=== PATIENT | female | born 2000 | race Caucasian/White ===

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

== ENCOUNTER 2022-11-09 14:35 | Outpatient (CLI) | payer OTHER ==
[~2022-11-09 14:35] MED LIST changes: +FOLIC ACID0.8 M1
== END 2022-11-09 15:35 | disposition home or self-care (01) ==
LOC: PRENATAL 14:35
PROVIDERS: ATTEND Obstetrics & Gynecology Maternal & Fetal Medicine
DX: O26.849 Uterine size-date discrepancy, unspecified trimester (principal); O36.80X0 Pregnancy with inconclusive fetal viability, not applicable or unspecified; Z36.0 Encounter for antenatal screening for chromosomal anomalies; Z3A.15 15 weeks gestation of pregnancy

== ENCOUNTER → 2023-03-06 10:43 | Outpatient (CLI) | payer OTHER | END | disposition home or self-care (01) | LOC: PRENATAL 10:43 | PROVIDERS: ATTEND Obstetrics & Gynecology Maternal & Fetal Medicine | DX: O26.849 Uterine size-date discrepancy, unspecified trimester (principal); O36.8199 Decreased fetal movements, unspecified trimester, other fetus; Z3A.32 32 weeks gestation of pregnancy ==

== ENCOUNTER 2023-04-19 14:00 | Inpatient (IN) | payer OTHER ==
[~2023-04-19] VITALS: Ht 162.6 cm; Wt 90.7 kg
[2023-04-30 08:17] LABS: HEMATOCRIT 33.9 % (36.0-45.00); HEMOGLOBIN 11.5 g/dL (12.0-15.00); MEAN CELL VOLUME 84.4 fL (80.00-100.00); MEAN CORPUSCULAR HEMOGLOBIN 28.7 pg (27.00-32.0); PLATELET COUNT 298 K/uL (150-450); RED BLOOD COUNT 4.02 M/uL (4.00-6.00); RED CELL DISTRIBUTION WIDTH 13.5 % (11.5-14.5)
[2023-04-30] MEDS ORDERED: RINGERS SOLUTION,LACTATED 1,000 ML IV SCH (08:30)
[2023-04-30 08:34] LABS: PH,URINE 6.5 (5.0-8.0); URINE APPEARANCE Cloudy; URINE BILIRRUBIN Negative (NEGATIVE); URINE BLOOD Negative; URINE COLOR Dark Yellow; URINE GLUCOSE Negative (NEGATIVE); URINE LEUKOCYTE Large; URINE NITRATE Negative; URINE PROTEIN 30 (NEGATIVE)
[2023-04-30 08:41] LABS: URINE EPITHELIAL CELLS 199.9 uL (0.0-38.8); URINE RBC 17.8 uL (0.0-20.8); URINE WBC 573.1 uL (0.0-23.2)
[2023-04-30] MEDS ORDERED: MORPHINE SULFATE 4 MG/ML VIAL IV ONE ×2 (08:45→12:30)
[2023-04-30] MEDS ORDERED: OXYTOCIN 500 ML IV SCH (08:45)
[2023-04-30 08:47] LABS: INR < 0.93; PARTIAL THROMBOPLASTIN TIME 26.5 SECONDS (22.0-34.0); PROTHROMBIN TIME 9.6 SECONDS (9.0-11.5)
[2023-04-30 08:53] LABS: URINE BACTERIA > 9821.5 uL (0.0-1933)
[2023-04-30] MEDS ORDERED: OXYTOCIN 10 UNITS/ML VIAL ONE ×2 (10:09→15:51)
[2023-04-30] MEDS ORDERED: IBUprofen 400 MG TABLET PO PRN (13:45)
[2023-04-30] MEDS ORDERED: ERYTHROMYCIN BASE 1 GM TUBE OP ONE (13:45)
[2023-04-30] MEDS ORDERED: CHLORHEXIDINE GLUCONATE 120 ML BOTTLE TOP SCH (14:30)
[2023-04-30] MEDS ORDERED: OXYTOCIN 1,000 ML IV SCH (14:30)
[2023-04-30 14:32] LABS: ABG PH 7.421 (7.35-7.45); ABG pCO2 29.3 mmHg (35-45)
[2023-04-30 14:33] LABS: ABG PO2 25.8 mmHg (80-100); BASE EXCESS -4.4 mmol/l; BICARBONATE 18.6 mmol/l (23-25); SaO2 47.4 %; Tco2 19.5 mmol/l
[2023-04-30 14:34] LABS: o2 21 %
[2023-04-30 21:28] LABS: HEMATOCRIT 33.3 % (36.0-45.00); HEMOGLOBIN 11.3 g/dL (12.0-15.00); MEAN CELL VOLUME 82.4 fL (80.00-100.00); MEAN CORPUSCULAR HGB CONC 33.9 g/dl (32.0-36.0); PLATELET COUNT 305 K/uL (150-450); RED BLOOD COUNT 4.04 M/uL (4.00-6.00); RED CELL DISTRIBUTION WIDTH 13.7 % (11.5-14.5)
[2023-05-01] MEDS ORDERED: PNV,CALCIUM 72/IRON/FOLIC ACID 1 TAB TABLET PO SCH (09:00)
== END 2023-05-02 15:03 | disposition home or self-care (01) | DRG 807 ==
LOC: OB/GYN 04-30 07:23 → LDR 04-30 07:23 → SURG 04-30 14:00 → OB/GYN 04-30 15:38
PROVIDERS: ADMIT Obstetrics & Gynecology; ATTEND Obstetrics & Gynecology
PROC: 10E0XZZ Delivery of Products of Conception, External Approach (ICD-10-PCS; principal; 2023-04-30)
PROC: 4A1HXCZ Monitoring of Products of Conception, Cardiac Rate, External Approach (ICD-10-PCS; 2023-04-30)
DX: O80 Encounter for full-term uncomplicated delivery (principal); Z37.0 Single live birth; Z3A.40 40 weeks gestation of pregnancy; Z20.822 Contact with and (suspected) exposure to COVID-19